=== PATIENT | female | born 1955 | race Caucasian/White ===

== ENCOUNTER 2016-08-30 09:37 | Observation (INO) | payer BC ==
[~2016-08-30] VITALS: Ht 166.4 cm; Wt 83.0 kg
[2016-08-30 10:26] LABS: BASOPHIL COUNT 0.1 K/uL (0-0.1); EOSINOPHIL (%) 3.3 % (0-5); EOSINOPHIL COUNT 0.2 K/uL (0-0.3); HEMATOCRIT 43.1 % (36.0-46.0); IMMATURE GRANULOCYTE (%) 0.3 % (0.0-0.7); MCH 28.9 PG (29.0-34.0); MCHC 33.6 G/DL (30.0-36.0); MCV 85.9 FL (83-99); MEAN PLAT.VOLUME 9.9 uM^3 (9.5-12.4); MONOCYTE (%) 7.1 % (3-12); MONOCYTE COUNT 0.5 K/uL (0-0.8); PLATELET COUNT 296 K/uL (156-360); RBC DIS.WIDTH-CV 12.1 % (11.8-14.6); RBC DIS.WIDTH-SD 37.8 % (39-53); RED BLOOD COUNT 5.02 M/uL (3.80-5.20); WHITE BLOOD COUNT 6.8 K/uL (4.1-10.2)
[2016-08-30 10:35] LABS: CHLORIDE 99 mEq/L (99-109); POTASSIUM 3.2 mEq/L (3.7-5.4); SODIUM 139 mEq/L (136-147)
[2016-08-30 10:37] LABS: GLUCOSE 104 mg/dL (70-99)
[2016-08-30 10:39] LABS: ANION GAP 11 MEQ/L (2-14); D-DIMER ELISA 0.36 mg/L FEU (< 0.57); INTER. NORMALIZED RATIO 1.1; PROTHROMBIN TIME 11.1 (9.2-11.2); PTT 30.3 (25-32)
[2016-08-30 10:41] LABS: GFR ESTIMATE (CALCULATED) > 59 mL/min/
[2016-08-30 10:42] LABS: UREA NITROGEN (BUN) 22 mg/dL (9-23)
[2016-08-30 10:47] LABS: TROP-I INTERPRETATION NEGATIVE; TROPONIN-I < 0.01 ng/mL (0.0-0.30)
[2016-08-30] MEDS ORDERED: FENOFIBRATE48 MG PO (12:17)
[2016-08-30] MEDS ORDERED: GLUCOPHAGE500 MG PO (12:18)
[2016-08-30] MEDS ORDERED: CHLORTHALIDONE25 MG PO (12:18)
[2016-08-30] MEDS ORDERED: NAPROXEN SODIU550 MG PO (12:19)
[2016-08-30 13:30] VITALS: BP 175/70
[2016-08-30 16:05] VITALS: BP 134/83
[2016-08-30 18:13] LABS: TROP-I INTERPRETATION NEGATIVE; TROPONIN-I < 0.01 ng/mL (0.0-0.30)
[2016-08-30 20:07] VITALS: BP 137/69
[2016-08-30 23:16] LABS: TROP-I INTERPRETATION NEGATIVE; TROPONIN-I < 0.01 ng/mL (0.0-0.30)
[2016-08-30 23:48] VITALS: BP 122/56
[2016-08-31 01:02] LABS: TROP-I INTERPRETATION NEGATIVE; TROPONIN-I < 0.01 ng/mL (0.0-0.30)
[2016-08-31 03:54] VITALS: BP 119/58
[2016-08-31 07:18] VITALS: BP 123/72
[2016-08-31] MEDS ORDERED: ATORVASTATIN CA40 MG PO (08:00)
[2016-08-31] MEDS ORDERED: ASPIR-LOW81 MG PO (08:00)
[2016-08-31] MEDS ORDERED: CARVEDILOL6.25 MG PO (08:00)
== END 2016-08-31 09:02 | disposition home or self-care (01) ==
LOC: EME 09:37 → 5WEST 11:53 → EDOF 11:53 → 5WEST 13:14
PROVIDERS: Emergency Medicine; Hospitalist; Internal Medicine Cardiovascular Disease
DX: R07.89 Other chest pain (principal); E87.6 Hypokalemia; J44.9 Chronic obstructive pulmonary disease, unspecified; I10 Essential (primary) hypertension; E11.9 Type 2 diabetes mellitus without complications; E78.5 Hyperlipidemia, unspecified; Z87.891 Personal history of nicotine dependence
CPT/HCPCS: 71010; 80048; 82948; 84484; 85025; 85379; 85610; 85730; 93005; 99281; 99284; G0378